=== PATIENT | male | born 1960 | race Caucasian/White ===

== ENCOUNTER 2023-01-18 07:30 | Day surgery (SDC) | payer OTHER, SELFPAY ==
[2023-01-18] MEDS ORDERED: Ringers Lactate 1,000 ML IV ONE (08:00)
[2023-01-18 08:24] VITALS: O2SAT 100
[2023-01-18] MEDS ORDERED: propofoL 200 MG/20 ML VIAL IV ONE (09:26)
[2023-01-18 12:01] VITALS: BP 130/81; TEMP 97.3
[2023-01-18] MEDS ORDERED: TRAMADOL HCL 50 MG TAB ONE (12:31)
--- NOTE | 2023-01-18 13:36 | RAD REPORT ---
EXAM DESCRIPTION: CTChest Abdomen Pelvis W Cont - 01/18/2023 1:17 pm CLINICAL HISTORY: S/P EGD/COLONOSCOPY COMPARISON: No comparisons TECHNIQUE: CT of the chest, abdomen, and pelvis was performed. All CT scans are performed using dose optimization technique as appropriate and may include automated exposure control or mA/KV adjustment according to patient size. FINDINGS: Thorax: Chest Wall: No abnormal mass Lungs: Emphysema. Pleura: No effusions or pneumothorax. Laura/Mediastinum: No lymphadenopathy. Aorta/Pulmonary Arteries: Ascending thoracic aortic aneurysm measuring 4.6 cm. Probable aortic valve calcifications. Heart: Normal size. Coronary artery calcifications and/or stents. Abdomen/Pelvis: Liver: No acute abnormality or suspicious lesions. Biliary: No biliary ductal dilatation. Stomach: No significant focal abnormality. Duodenum: No significant focal abnormality. Pancreas: No significant abnormality. Spleen: No significant abnormality. Adrenal: No suspicious lesions. Kidney/ureter: No hydronephrosis. No renal calculi. Retroperitoneum: No retroperitoneal adenopathy. Vascular: Infrarenal abdominal aortic aneurysm status post aortic stent graft placement. The aneurysm sac measures 5.7 cm. No prior imaging for comparison. Bowel: No significant focal abnormality. Peritoneum: No ascites or free air. Small fat containing right inguinal hernia . Bladder: Grossly unremarkable. Reproductive: Mild prostatomegaly. Bones: No acute fracture. Scattered osseous sclerotic foci which are nonspecific. Remote appearing T5 and T12 compression fractures. Other: n/a IMPRESSION: 1. Scattered sclerotic foci primarily within the spine concerning for osseous metastatic disease, statistically prostate cancer in a male patient of this age. Suggest correlating with PSA. 2. Ascending thoracic aortic aneurysm measuring 4.6 cm. Prior abdominal aortic aneurysm repair as not ed above.
--- NOTE | 2023-01-18 17:31 | EKG ---
Test Date: 2023-01-16 Test Time: 09:41:06 Manager Sustainability: MARVIN MEASUREMENT RESULTS: Intervals: Rate: 60 HI: 118 QRSD: 82 QT: 428 QTc: 428 [place]: P: 75 HI: 118 QRS: 22 T: -2 INTERPRETIVE STATEMENTS: Sinus rhythm with fusion complexes Nonspecific ST and T wave abnormality Abnormal ECG Compared to ECG 11/08/2003 18:49:00 Fusion complex(es) now present ST (T wave) deviation now present Electronically Signed On 01-18-23 17:23:40 [employer] by Moy Osorio
[2023-01-20 23:46] LABS: Carcinoembryonic Antigen 5.4 ng/mL (0-5.0)
== END 2023-01-18 12:54 | disposition home or self-care (01) ==
LOC: OR 07:30
PROVIDERS: ATTEND Internal Medicine Gastroenterology
PROC: 0DBL8ZX Excision of Transverse Colon, Via Natural or Artificial Opening Endoscopic, Diagnostic (ICD-10-PCS; 2023-01-18)
PROC: 0DBM8ZX Excision of Descending Colon, Via Natural or Artificial Opening Endoscopic, Diagnostic (ICD-10-PCS; 2023-01-18)
PROC: 0DBH8ZX Excision of Cecum, Via Natural or Artificial Opening Endoscopic, Diagnostic (ICD-10-PCS; 2023-01-18)
PROC: 0DB68ZX Excision of Stomach, Via Natural or Artificial Opening Endoscopic, Diagnostic (ICD-10-PCS; principal; 2023-01-18 09:30)
PROC: 0DBK8ZX Excision of Ascending Colon, Via Natural or Artificial Opening Endoscopic, Diagnostic (ICD-10-PCS; 2023-01-18 09:30)
DX: Z12.11 Encounter for screening for malignant neoplasm of colon (principal); R10.13 Epigastric pain; R63.4 Abnormal weight loss; R10.11 Right upper quadrant pain; R10.12 Left upper quadrant pain; K29.50 Unspecified chronic gastritis without bleeding; D12.2 Benign neoplasm of ascending colon; D12.0 Benign neoplasm of cecum; D12.4 Benign neoplasm of descending colon; D12.3 Benign neoplasm of transverse colon; K63.5 Polyp of colon; R14.0 Abdominal distension (gaseous); R14.2 Eructation; R11.2 Nausea with vomiting, unspecified; K21.00 Gastro-esophageal reflux disease with esophagitis, without bleeding; K44.9 Diaphragmatic hernia without obstruction or gangrene; K25.3 Acute gastric ulcer without hemorrhage or perforation; K29.60 Other gastritis without bleeding; K29.80 Duodenitis without bleeding; N40.0 Benign prostatic hyperplasia without lower urinary tract symptoms; K64.8 Other hemorrhoids; J44.9 Chronic obstructive pulmonary disease, unspecified; Z95.5 Presence of coronary angioplasty implant and graft
CPT/HCPCS: 43239; 93005; 36415; 88312; 82565; 88305; 82378; 82941; 71260; 74177; 45385; Q9967; J2704; J7120